=== PATIENT | male | born 1945 | race Caucasian/White ===

== ENCOUNTER 2016-09-02 17:01 | Emergency (ER) | payer MEDICARE, OTHER ==
[~2016-09-02] VITALS: Ht 193 cm; Wt 100.0 kg
[2016-09-02 17:05] VITALS: BP 158/91; PULSE 96; RESP 12; TEMP 98.1; O2SAT 99
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
[2016-09-02] MEDS ORDERED: CEPH-460 PO ×2 (18:41→19:56)
[2016-09-02] MEDS ORDERED: BACT2OIN TOPICAL (19:56)
--- NOTE | 2016-09-02 20:02 | PD ---
Physical Exam Date Seen by Provider: Sep 02, 2016 Time Seen by Provider: 19:56 Data Data Last Documented VS Vital Signs Date Time Temp Pulse Resp B/P Pulse Ox O2 Delivery O2 Flow Rate FiO2 09/02/16 17:05 98.1 96 12 158/[address] Facial Bones W/O Iv Cont (09/02/16 ) [facility] Medical Record Reviewed: Yes Supervised Visit with ROSLYN: No Interpretation(s) CT facial bones: Patient has positive metallic foreign bodies in the right cheek and right mandible Differential Diagnosis Differential diagnoses: Foreign body, contusion, abrasion Narrative Course Patient's given Keflex here in the ER. His wounds are cleansed and dressings applied. CAT scan confirms retained foreign bodies. The case has been discussed with Dr. Negron who has accepted the patient. He has requested the patient call the office for follow-up. This is facial foreign bodies Diagnosis Primary Impression: Retained foreign body of face Referrals: Daniel Agrawal MD 2 days Primary Care Physician Patient Instructions: General Instructions Additional Instruction: Rest. Daily wound care with soap, water, Bactroban. Keflex. Tylenol for any pain. Follow-up with Dr. Agrawal call his office in the morning. Med/Other Pt SpecificInfo: Prescription(s) given, Wound Care Scripts Mupirocin Topical (Bactroban Topical)2% Oint1 Appl TOPICAL BID #1 TUBE Ref 0 Prov:Augustine Jeter MD 09/02/16 Cephalexin (Keflex)500 Mg [id number] Mg PO Q6H #28 CAP Prov:Augustine Jeter MD 09/02/16 Cephalexin (Keflex)500 Mg Urv209 Mg PO Q8H 10 Days Ref 0 Prov:Chastity Tucker 09/02/16 Disposition: 01 DISCHARGE HOME Condition: Stable Yariel Akers Sep 02, 2016 20:01
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
[2016-09-02 20:16] VITALS: BP 141/85
== END 2016-09-02 20:16 | disposition home or self-care (01) ==
LOC: NEPB 17:01
DX: M79.5 Residual foreign body in soft tissue (principal); S01.441A Puncture wound with foreign body of right cheek and temporomandibular area, initial encounter; S01.84XA Puncture wound with foreign body of other part of head, initial encounter; W45.8XXA Other foreign body or object entering through skin, initial encounter; Y93.89 Activity, other specified; Y92.39 Other specified sports and athletic area as the place of occurrence of the external cause
CPT/HCPCS: 70486